=== PATIENT | female | born 1990 | race Caucasian/White ===

== ENCOUNTER → 2021-02-27 | Outpatient (CLI) | payer BC ==
[2021-02-27 19:09] LABS: BASO # 0.04 (0.02-0.10); EOS # 0.17 (0.04-0.40); EOS % 1.7 % (1.0-5.0); HEMATOCRIT 30.4 % (37.0-47.0); HEMOGLOBIN 8.7 g/dL (12.5-16.0); LYMPH# 2.39 (1.50-4.00); MEAN CELL VOLUME 65 fl (78-100); MEAN CORPUSCULAR HEMOGLOBIN 19 pg (27-31); MEAN CORPUSCULAR HGB CONC 29 g/dL (33-37); MEAN PLATELET VOLUME 9.8 fl (7.4-10.4); MONO # 0.76 (0.20-0.80); NEU # 6.43 (1.40-6.50); PLATELET COUNT 425 K/mm3 (130-400); RED BLOOD COUNT 4.65 M/mm3 (4.10-5.30); RED CELL DISTRIBUTION WIDTH 18.5 % (11.5-14.5); WHITE BLOOD COUNT 9.8 K/mm3 (4.8-10.8)
[2021-02-27 19:30] LABS: ALBUMIN 4.2 g/dL (3.5-5.0); POTASSIUM 4.1 mmol/L (3.5-5.1)
[2021-02-27 19:31] LABS: CALCIUM 8.9 mg/dL (8.3-10.5)
[2021-02-27 19:32] LABS: TOTAL PROTEIN 7.6 g/dL (6.4-8.3)
[2021-02-27 19:34] LABS: TOTAL BILIRUBIN 0.4 mg/dL (0.2-1.2)
[2021-02-27 19:38] LABS: URINE APPEARANCE HAZY; URINE BILIRUBIN NEGATIVE (NEGATIVE); URINE BLOOD 250 ery/uL (NEGATIVE); URINE COLOR YELLOW; URINE GLUCOSE NEGATIVE (NEGATIVE); URINE KETONE NEGATIVE (NEGATIVE); URINE LEUKOCYTE ESTERASE 1+ (NEGATIVE); URINE NITRATE NEGATIVE (NEGATIVE); URINE PROTEIN(semi-quant) TRACE mg/dL (NEGATIVE); URINE UROBILINOGEN NORMAL (NORMAL)
== END ==
LOC: LAB 18:28
PROVIDERS: Physician Assistant
DX: R10.9 Unspecified abdominal pain (principal)

== ENCOUNTER → 2021-03-03 | Outpatient (CLI) | payer BC | LOC: RAD 13:27 | DX: N83.201 Unspecified ovarian cyst, right side (principal) ==